=== PATIENT | male | born 1975 | race Caucasian/White ===

== ENCOUNTER 2021-04-29 14:37 | Observation (INO) ==
[2021-04-29] MEDS ORDERED: Ondansetron 4 MG/2 ML VIAL IVP ONE (14:59)
[2021-04-29] MEDS ORDERED: 0.9 % Sodium Chloride 1,000 ML IVC ONE (14:59)
[2021-04-29 15:30] LABS: Basophils % 0.2 %; Eosinophils % 0.1 %; Hematocrit 22.7 % (37.5-50.1); Hemoglobin 6.7 g/dL (12.9-16.9); Immature Granulocytes % 0.7 % (0-4); Lymphocytes % 5.7 %; Mean Corpuscular HGB Conc 29.5 g/dL (31.6-35.5); Mean Corpuscular Hemoglobin 21.1 pg (28.0-33.3); Mean Corpuscular Volume 71.6 fL (83.0-100.0); Mean Platelet Volume 8.8 fL (9.4-12.4); Monocytes # 0.6 K/mcL (0.0-1.3); Monocytes % 3.5 %; Platelet Count 588 K/mcL (140-400); Red Blood Count 3.17 M/mcL (4.19-5.50); Segmented Neutrophils % 89.8 %; White Blood Count 17.8 K/mcL (4.3-11.1)
[2021-04-29 15:32] LABS: INR 1.2; Prothrombin Time 14.2 Seconds (9.4-12.1)
[2021-04-29 15:59] LABS: BUN/Creatinine Ratio 18 (6-26); Blood Urea Nitrogen 14 mg/dL (6-20); Calcium 8.2 mg/dL (8.6-10.3); Carbon Dioxide 31 mEq/L (23-29); Chloride 92 mEq/L (98-107); Glucose 280 mg/dL (70-105); Osmolality,Calculated 287 (280-300); Potassium 3.9 mEq/L (3.5-5.1); Sodium 133 mEq/L (136-145); eGFR For African Americans > 60 (> 60); eGFR For Non-African Americans > 60 (> 60)
[2021-04-29 16:48] LABS: Troponin I 0.03 ng/mL (< 0.04)
[2021-04-29] MEDS ORDERED: Naloxone 0.4 MG/ML INJ IVP PRN (17:18)
[2021-04-29] MEDS ORDERED: Acetaminophen 325 MG TABLET PO PRN (17:18)
[2021-04-29] MEDS ORDERED: Ondansetron 4 MG/2 ML VIAL IVP PRN (17:18)
[2021-04-29] MEDS ORDERED: GuaiFENesin Liq 200 MG/10 ML UDC PO PRN (17:19)
[2021-04-29] MEDS ORDERED: NON-FORMULARY MEDICATION 1 EACH EACH (Ondansetron Hcl [Zofran] 4 MG Tablet) PO PRN (17:19)
[2021-04-29] MEDS ORDERED: 0.9 % Sodium Chloride 250 ML IVC SCH (17:30)
[2021-04-29] MEDS: Nystatin SUSP 5 ML UD.LIQ PO SCH (20:50)
[2021-04-29] MEDS: Gabapentin 400 MG CAPSULE GTUBE SCH (20:50)
[2021-04-29] MEDS: 0.9 % Sodium Chloride 1,000 ML IVC SCH (23:52)
[2021-04-30 02:08] LABS: Hematocrit 23.5 % (37.5-50.1); Hemoglobin 7.3 g/dL (12.9-16.9)
[2021-04-30] MEDS: 0.9 % Sodium Chloride 1,000 ML IVC SCH (04:45)
[2021-04-30 08:28] LABS: BUN/Creatinine Ratio 19 (6-26); Basophils % 0.2 %; Blood Urea Nitrogen 12 mg/dL (6-20); Calcium 7.9 mg/dL (8.6-10.3); Carbon Dioxide 32 mEq/L (23-29); Chloride 99 mEq/L (98-107); Eosinophils % 0.4 %; Glucose 97 mg/dL (70-105); Hematocrit 21.3 % (37.5-50.1); Hemoglobin 6.5 g/dL (12.9-16.9); Immature Granulocytes % 0.6 % (0-4); Lymphocytes # 0.9 K/mcL (0.6-4.6); Lymphocytes % 11.4 %; Mean Corpuscular HGB Conc 30.5 g/dL (31.6-35.5); Mean Corpuscular Volume 75.3 fL (83.0-100.0); Mean Platelet Volume 8.8 fL (9.4-12.4); Monocytes # 0.6 K/mcL (0.0-1.3); Monocytes % 7.5 %; Neutrophils # 6.5 K/mcL (1.6-8.9); Osmolality,Calculated 282 (280-300); Platelet Count 370 K/mcL (140-400); Red Blood Count 2.83 M/mcL (4.19-5.50); Red Cell Distribution Width 21.6 % (11.5-14.5); Segmented Neutrophils % 79.9 %; Sodium 136 mEq/L (136-145); White Blood Count 8.1 K/mcL (4.3-11.1); eGFR For African Americans > 60 (> 60); eGFR For Non-African Americans > 60 (> 60)
[2021-04-30] MEDS ORDERED: TESTOSTERONE TP SCH (09:00)
[2021-04-30] MEDS ORDERED: Loratadine 10 MG TABLET PO SCH (09:00)
[2021-04-30] MEDS ORDERED: 0.9 % Sodium Chloride 250 ML IVC SCH (09:45)
[2021-04-30] MEDS: Nystatin SUSP 5 ML UD.LIQ PO SCH ×3 (10:25→17:44)
[2021-04-30] MEDS: *HR* Methadone 10 MG TABLET PO SCH ×2 (10:25→17:44)
[2021-04-30] MEDS: Gabapentin 400 MG CAPSULE GTUBE SCH ×2 (10:25→17:44)
[2021-04-30 17:41] VITALS: BP 101/66
[2021-04-30 18:21] LABS: Hematocrit 26.5 % (37.5-50.1); Hemoglobin 8.3 g/dL (12.9-16.9)
== END 2021-04-30 19:42 | disposition home or self-care (01) ==
LOC: INPPIK 14:37 → EMEROOPIK 14:37 → INPPIK 19:14
PROVIDERS: ADMIT Family Medicine; ATTEND Family Medicine